=== PATIENT | female | born 1985 | race Two or more races ===

== ENCOUNTER 2022-12-09 07:07 | Inpatient (IN) | payer MEDICAID ==
[~2022-12-09] VITALS: Ht 152.4 cm; Wt 51.5 kg
[~2022-12-09 07:07] MED LIST: INSLANTI SC; INSREG3 IV
[2022-12-09 07:45] VITALS: PULSE 115; RESP 22; O2SAT 100
[2022-12-09] MEDS ORDERED: ONDANSETRON HCL 4 MG/2 ML VIAL IV ONE (09:15)
[2022-12-09] MEDS ORDERED: SODIUM CHLORIDE 0.9% 1,000 ML IV ONE ×2 (09:15)
[2022-12-09] MEDS ORDERED: MORPHINE SULFATE 4 MG/ML SYR/VIAL IV ONE (09:15)
[2022-12-09 09:29] LABS: Basophils # (auto) 0 10 ^3/uL (0-0.2); Eosinophils # (auto) 0 10 ^3/uL (0-0.8); Eosinophils % (auto) 0.1 % (0.0-7.0); Monocytes # (auto) 0.2 10 ^3/uL (0-1.3); Neutrophils # (auto) 7.5 10 ^3/uL (1.6-8.6)
[2022-12-09 09:31] LABS: Basophils % (auto) 0.6 % (0.0-2.0); Hemoglobin 14.6 g/dL (12.2-16.2); Lymphocytes # (auto) 0.9 10 ^3/uL (0.4-5.4); Lymphocytes % (auto) 10.1 % (10.0-50.0); Mean Corpuscular Hemoglobin 28.6 pg (28.0-32.0); Mean Corpuscular Hgb Conc. 32.3 g/dL (32.0-36.0); Mean Corpuscular Volume 88.3 fL (80.0-100.0); Monocytes % (auto) 2.7 % (0.0-12.0); Neutrophils % (auto) 86.5 % (37.0-80.0); Red Cell Distribution Width 14.6 % (11.8-14.3); White Blood Cell 8.7 10^3/uL (4.4-10.8)
[2022-12-09 09:39] LABS: Base Excess -12.5 mmol/L (-2.0-2.0)
[2022-12-09 10:07] LABS: Alanine Aminotransferase 39 U/L (7-40); Albumin 4.9 g/dL (3.2-4.8); Alkaline Phosphatase 178 U/L (46-116); Anion Gap 21.00001 (5-15); Aspartate Aminotransferase 11 U/L (13-40); BUN/Creatinine Ratio 13.9 (10.0-20.0); Bilirubin, Total 0.3 mg/dL (0.2-1.0); Blood Urea Nitrogen 23 mg/dL (9-23); Chloride 97 mmol/L (98-107); Potassium 5.1 mmol/L (3.5-5.1); Sodium 128 mmol/L (136-145); Total Protein 8.2 g/dL (5.7-8.2)
[2022-12-09 11:10] LABS: Glucose 542 mg/dL (74-106)
[2022-12-09 11:11] LABS: Carbon Dioxide < 10.0 mmol/L (20-30)
[2022-12-09] MEDS ORDERED: InsuLIN REG 1unit/0.01ml Soln (100units/ml) IV ONE (11:30)
[2022-12-09] MEDS ORDERED: INSULIN LANTUS (GLARGINE) 1 /0.01ml (100units/ml) SC ONE (11:45)
[2022-12-09] MEDS ORDERED: DEXTROSE (50%) 50ML SYRG IV PRN ×2 (11:45→18:45)
[2022-12-09 11:56] LABS: Urine Bacteria MOD /hpf (None Seen); Urine Blood TRACE /uL (Negative); Urine Budding Yeast OCCASIONAL /hpf (None Seen); Urine Clarity HAZY (Clear); Urine Hyaline Cast FEW /lpf (0 - 2); Urine Protein, UAD 2+ (Negative); Urine Specific Gravity 1.019 (1.001-1.035); Urine Urobilinogen Normal (Negative); Urine WBC 33 /hpf (0 - 5); Urine pH 5.5 (5.0-8.0)
[2022-12-09 12:18] LABS: Urine Color Straw (Yellow)
[2022-12-09] MEDS: ACCU-CHEK COMFORT CURVE STRIP VI SCH ×6 (12:24→20:09)
[2022-12-09] MEDS: InsuLIN R (HUMAN) 100 UNITS in SODIUM CHL 0.9% 99 ML IV SCH ×2 (13:09→13:47)
[2022-12-09 13:11] LABS: Magnesium 2.3 mg/dL (1.6-2.6)
[2022-12-09 13:12] LABS: Phosphorus 2.8 mg/dL (2.4-5.1)
[2022-12-09] MEDS: SODIUM CHLORIDE 0.9% 1,000 ML IV SCH ×3 (13:13→23:02)
[2022-12-09] MEDS ORDERED: cefTRIAXone 1GM/50ML D5W 50 ML IV ONE (14:00)
[2022-12-09] MEDS ORDERED: ONDANSETRON HCL 4 MG/2 ML VIAL IV PRN (14:00)
[2022-12-09] MEDS ORDERED: MORPHINE SULFATE INJ 2 MG/ml SYRG IV PRN (14:00)
[2022-12-09] MEDS ORDERED: NITROGLYCERIN 0.4 MG SL TAB SL PRN (14:00)
[2022-12-09] MEDS ORDERED: PANTOPRAZOLE 40 MG/10 ML VIAL INJ IV ONE (14:15)
[2022-12-09 14:40] LABS: Base Excess -8.8 mmol/L (-2.0-2.0)
[2022-12-09] MEDS ORDERED: D5W/SOD CHL 0.45% 1,000 ML IV SCH (15:30)
[2022-12-09] MEDS ORDERED: SODIUM CHLORIDE 0.9% 1,000 ML IV SCH ×2 (15:45→17:45)
[2022-12-09 16:13] LABS: Potassium 3.7 mmol/L (3.5-5.1); Sodium 136 mmol/L (136-145)
[2022-12-09 16:14] LABS: Anion Gap 9.1 (5-15); Carbon Dioxide 15.9 mmol/L (20-30)
[2022-12-09 16:15] LABS: Calcium 8.1 mg/dL (8.5-10.1)
[2022-12-09 16:19] LABS: Glucose 98 mg/dL (74-106)
[2022-12-09 16:20] LABS: BUN/Creatinine Ratio 10.7 (10.0-20.0); Blood Urea Nitrogen 13 mg/dL (9-23)
[2022-12-09 16:22] LABS: Chloride 111 mmol/L (98-107)
[2022-12-09 19:26] LABS: Chloride 110 mmol/L (98-107); Potassium 4.1 mmol/L (3.5-5.1); Sodium 135 mmol/L (136-145)
[2022-12-09 19:27] LABS: Anion Gap 2.1 (5-15); Calcium 8.4 mg/dL (8.5-10.1); Carbon Dioxide 22.9 mmol/L (20-30)
[2022-12-09 19:32] LABS: BUN/Creatinine Ratio 11.8 (10.0-20.0); Blood Urea Nitrogen 14 mg/dL (9-23); Glucose 91 mg/dL (74-106)
[2022-12-09 19:55] VITALS: PULSE 108; RESP 20; O2SAT 100
[2022-12-09] MEDS ORDERED: HYDROcodone-ACET 5/325MG TAB PO ONE (21:00)
[2022-12-09] MEDS: InsuLIN REG 1unit/0.01ml Soln (100units/ml) SC SCH (21:01)
[2022-12-09] MEDS ORDERED: INSULIN LANTUS (GLARGINE) 1 /0.01ml (100units/ml) SC SCH (22:00)
[2022-12-10] MEDS: ACCU-CHEK COMFORT CURVE STRIP VI SCH ×6 (01:05→21:06)
[2022-12-10 01:07] LABS: Anion Gap 7.8 (5-15); Carbon Dioxide 16.2 mmol/L (20-30); Chloride 109 mmol/L (98-107); Potassium 3.9 mmol/L (3.5-5.1); Sodium 133 mmol/L (136-145)
[2022-12-10 01:08] LABS: Calcium 8.3 mg/dL (8.7-10.4)
[2022-12-10] MEDS: InsuLIN REG 1unit/0.01ml Soln (100units/ml) SC SCH ×6 (01:10→20:00)
[2022-12-10 01:13] LABS: BUN/Creatinine Ratio 7.8 (10.0-20.0); Blood Urea Nitrogen 10 mg/dL (9-23); Glucose 160 mg/dL (74-106)
[2022-12-10] MEDS: SODIUM CHLORIDE 0.9% 1,000 ML IV SCH ×3 (05:38→22:47)
[2022-12-10 07:01] LABS: Alanine Aminotransferase 28 U/L (7-40); Alkaline Phosphatase 117 U/L (46-116); Anion Gap 8.4 (5-15); BUN/Creatinine Ratio 10.2 (10.0-20.0); Blood Urea Nitrogen 12 mg/dL (9-23); Calcium 8.6 mg/dL (8.7-10.4); Carbon Dioxide 17.6 mmol/L (20-30); Chloride 110 mmol/L (98-107); Glucose 106 mg/dL (74-106); Potassium 3.7 mmol/L (3.5-5.1); Sodium 136 mmol/L (136-145)
[2022-12-10 07:03] LABS: Albumin 3.7 g/dL (3.2-4.8); Aspartate Aminotransferase 14 U/L (13-40); Bilirubin, Total 0.3 mg/dL (0.2-1.0); Total Protein 6.4 g/dL (5.7-8.2)
[2022-12-10 07:25] LABS: Basophils # (auto) 0.1 10 ^3/uL (0-0.2); Basophils % (auto) 0.8 % (0.0-2.0); Eosinophils # (auto) 0.1 10 ^3/uL (0-0.8); Eosinophils % (auto) 1.1 % (0.0-7.0); Hematocrit 37.6 % (36.0-46.0); Hemoglobin 12.3 g/dL (12.2-16.2); Lymphocytes # (auto) 1.7 10 ^3/uL (0.4-5.4); Lymphocytes % (auto) 22.5 % (10.0-50.0); Mean Corpuscular Hemoglobin 28.5 pg (28.0-32.0); Mean Corpuscular Hgb Conc. 32.7 g/dL (32.0-36.0); Mean Corpuscular Volume 87.4 fL (80.0-100.0); Monocytes # (auto) 0.4 10 ^3/uL (0-1.3); Neutrophils # (auto) 5.4 10 ^3/uL (1.6-8.6); Neutrophils % (auto) 70.6 % (37.0-80.0); Nucleated Red Blood Cells % 0.1 %; Red Cell Distribution Width 14.4 % (11.8-14.3); White Blood Cell 7.6 10^3/uL (4.4-10.8)
[2022-12-10 08:00] VITALS: PULSE 96; RESP 14; O2SAT 98
[2022-12-10] MEDS: cefTRIAXone 1GM/50ML D5W 50 ML IV SCH (09:34)
[2022-12-10] MEDS ORDERED: INSULIN LANTUS (GLARGINE) 1 /0.01ml (100units/ml) SC SCH ×2 (10:00→22:00)
[2022-12-10] MEDS: PANTOPRAZOLE 40 MG/10 ML VIAL INJ IV SCH (10:40)
[2022-12-10 12:53] LABS: Chloride 112 mmol/L (98-107); Potassium 4.2 mmol/L (3.5-5.1); Sodium 137 mmol/L (136-145)
[2022-12-10 12:54] LABS: Calcium 8.4 mg/dL (8.5-10.1)
[2022-12-10 12:59] LABS: BUN/Creatinine Ratio 11.3 (10.0-20.0); Blood Urea Nitrogen 12 mg/dL (9-23); Glucose 151 mg/dL (74-106)
[2022-12-10 13:24] LABS: Anion Gap 9.6 (5-15); Carbon Dioxide 15.4 mmol/L (20-30)
[2022-12-10] MEDS: ACETAMINOPHEN 325 MG TAB PO PRN ×2 (13:26→23:59)
[2022-12-10 19:16] LABS: Anion Gap 9.4 (5-15); Carbon Dioxide 15.6 mmol/L (20-30); Chloride 111 mmol/L (98-107); Potassium 4.6 mmol/L (3.5-5.1); Sodium 136 mmol/L (136-145)
[2022-12-10 19:17] LABS: Calcium 8.1 mg/dL (8.5-10.1)
[2022-12-10 19:22] LABS: BUN/Creatinine Ratio 14.3 (10.0-20.0); Blood Urea Nitrogen 15 mg/dL (9-23); Glucose 340 mg/dL (74-106)
[2022-12-10 21:10] VITALS: BP 104/69; PULSE 94; PULSE 95; RESP 14; TEMP 98.3; O2SAT 98
[2022-12-11] MEDS: ACCU-CHEK COMFORT CURVE STRIP VI SCH ×5 (00:03→16:00)
[2022-12-11] MEDS: InsuLIN REG 1unit/0.01ml Soln (100units/ml) SC SCH ×5 (00:11→16:00)
[2022-12-11 01:06] LABS: Chloride 114 mmol/L (98-107); Potassium 3.9 mmol/L (3.5-5.1); Sodium 138 mmol/L (136-145)
[2022-12-11 01:07] LABS: Calcium 7.6 mg/dL (8.5-10.1)
[2022-12-11 01:12] LABS: BUN/Creatinine Ratio 11.2 (10.0-20.0); Blood Urea Nitrogen 11 mg/dL (9-23); Glucose 149 mg/dL (74-106)
[2022-12-11 01:50] LABS: Anion Gap 6.9 (5-15); Carbon Dioxide 17.1 mmol/L (20-30)
[2022-12-11] MEDS: SODIUM CHLORIDE 0.9% 1,000 ML IV SCH ×4 (04:40→16:00)
[2022-12-11 05:00] VITALS: BP 104/65; PULSE 86; RESP 14; TEMP 98; O2SAT 100
[2022-12-11 08:00] VITALS: BP 130/89; PULSE 91; PULSE 94; RESP 20; TEMP 98.5; O2SAT 97
[2022-12-11] MEDS: cefTRIAXone 1GM/50ML D5W 50 ML IV SCH (09:11)
[2022-12-11] MEDS: ACETAMINOPHEN 325 MG TAB PO PRN (09:11)
[2022-12-11] MEDS: PANTOPRAZOLE 40 MG/10 ML VIAL INJ IV SCH (09:11)
[2022-12-11 09:29] LABS: Basophils # (auto) 0 10 ^3/uL (0-0.2); Basophils % (auto) 0.8 % (0.0-2.0); Eosinophils # (auto) 0.1 10 ^3/uL (0-0.8); Eosinophils % (auto) 2.1 % (0.0-7.0); Hematocrit 31.7 % (36.0-46.0); Hemoglobin 10.3 g/dL (12.2-16.2); Lymphocytes # (auto) 1.4 10 ^3/uL (0.4-5.4); Lymphocytes % (auto) 25.3 % (10.0-50.0); Mean Corpuscular Hemoglobin 28.6 pg (28.0-32.0); Mean Corpuscular Hgb Conc. 32.4 g/dL (32.0-36.0); Mean Corpuscular Volume 88.3 fL (80.0-100.0); Monocytes # (auto) 0.3 10 ^3/uL (0-1.3); Monocytes % (auto) 5.9 % (0.0-12.0); Neutrophils # (auto) 3.8 10 ^3/uL (1.6-8.6); Neutrophils % (auto) 65.9 % (37.0-80.0); Red Blood Cells 3.59 10^6/uL (4.0-5.20); Red Cell Distribution Width 14.7 % (11.8-14.3); White Blood Cell 5.7 10^3/uL (4.4-10.8)
[2022-12-11 10:00] LABS: Alanine Aminotransferase 36 U/L (7-40); Albumin 3.1 g/dL (3.2-4.8); Alkaline Phosphatase 95 U/L (46-116); Anion Gap 7.9 (5-15); Aspartate Aminotransferase 59 U/L (13-40); BUN/Creatinine Ratio 12.1 (10.0-20.0); Blood Urea Nitrogen 11 mg/dL (9-23); Calcium 7.9 mg/dL (8.5-10.1); Carbon Dioxide 17.1 mmol/L (20-30); Chloride 111 mmol/L (98-107); Glucose 240 mg/dL (74-106); Potassium 4.4 mmol/L (3.5-5.1); Sodium 136 mmol/L (136-145)
[2022-12-11 10:01] LABS: Bilirubin, Total 0.2 mg/dL (0.2-1.0); Total Protein 5.4 g/dL (5.7-8.2)
[2022-12-11] MEDS ORDERED: NITR-52 PO (10:52)
[2022-12-11 12:00] VITALS: BP 145/93; PULSE 93; RESP 20; TEMP 97.4; O2SAT 100
[2022-12-11 13:50] VITALS: TEMP 36.9
[2022-12-11] MEDS ORDERED: INS7030I SC (14:52)
[2022-12-11] MEDS ORDERED: INSLANTI SC (14:52)
== END 2022-12-11 16:45 | disposition home or self-care (01) | DRG 420 ==
LOC: EDBD 07:07 → ER 07:07 → TELE 14:03 → TELE-WESTW 12-10 19:42
PROVIDERS: ADMIT Internal Medicine Pulmonary Disease; ATTEND Internal Medicine Pulmonary Disease
DX: E10.10 Type 1 diabetes mellitus with ketoacidosis without coma (principal); N17.0 Acute kidney failure with tubular necrosis; E83.51 Hypocalcemia; E87.1 Hypo-osmolality and hyponatremia; N30.00 Acute cystitis without hematuria; I10 Essential (primary) hypertension; F12.10 Cannabis abuse, uncomplicated; Z83.3 Family history of diabetes mellitus; Z91.148 Patient's other noncompliance with medication regimen for other reason
CPT/HCPCS: 36415; 36600; 71045; 74176; 80048; 80053; 81001; 82010; 82306; 82607; 82805; 82962; 83036; 83735; 83930; 84100; 84443; 84484; 84702; 85025; 87086; 99291; C9113; G0378; J0696; J1815; J2405

== ENCOUNTER 2023-02-11 16:40 | Emergency (ER) | payer SELFPAY ==
[~2023-02-11] VITALS: Ht 152.4 cm; Wt 57.2 kg
[~2023-02-11 16:40] MED LIST changes: +INS7030I SC; +NITR-52 PO
[2023-02-11 18:14] LABS: Basophils # (auto) 0.1 10 ^3/uL (0-0.2); Basophils % (auto) 0.9 % (0.0-2.0); Eosinophils # (auto) 0.1 10 ^3/uL (0-0.8); Eosinophils % (auto) 1.8 % (0.0-7.0); Hematocrit 34.4 % (36.0-46.0); Hemoglobin 11.2 g/dL (12.2-16.2); Lymphocytes # (auto) 1.6 10 ^3/uL (0.4-5.4); Lymphocytes % (auto) 19.8 % (10.0-50.0); Mean Corpuscular Hemoglobin 27.5 pg (28.0-32.0); Mean Corpuscular Hgb Conc. 32.7 g/dL (32.0-36.0); Mean Corpuscular Volume 84.3 fL (80.0-100.0); Monocytes # (auto) 0.3 10 ^3/uL (0-1.3); Monocytes % (auto) 4.4 % (0.0-12.0); Neutrophils # (auto) 5.7 10 ^3/uL (1.6-8.6); Neutrophils % (auto) 73.1 % (37.0-80.0); Red Blood Cells 4.08 10^6/uL (4.0-5.20); Red Cell Distribution Width 15.5 % (11.8-14.3); White Blood Cell 7.9 10^3/uL (4.4-10.8)
[2023-02-11 18:33] LABS: Alanine Aminotransferase 33 U/L (7-40); Alkaline Phosphatase 151 U/L (46-116); Anion Gap 14 (5-15); Aspartate Aminotransferase 24 U/L (13-40); BUN/Creatinine Ratio 23.6 (10.0-20.0); Bilirubin, Total 0.3 mg/dL (0.2-1.0); Blood Urea Nitrogen 34 mg/dL (9-23); Calcium 9.3 mg/dL (8.5-10.1); Carbon Dioxide 18 mmol/L (20-30); Chloride 98 mmol/L (98-107); Glucose 325 mg/dL (74-106); Potassium 4.6 mmol/L (3.5-5.1); Sodium 130 mmol/L (136-145); Total Protein 6.5 g/dL (5.7-8.2)
[2023-02-11 20:42] VITALS: BP 117/77; PULSE 93; RESP 16; O2SAT 99
== END 2023-02-12 01:02 | disposition left against medical advice (07) ==
LOC: EDBD 16:40 → ER 16:40 → EDUNIT# 16:40 → ER 02-12 01:02
DX: E87.1 Hypo-osmolality and hyponatremia (principal); N17.9 Acute kidney failure, unspecified; E11.9 Type 2 diabetes mellitus without complications; I10 Essential (primary) hypertension; Z53.29 Procedure and treatment not carried out because of patient's decision for other reasons
CPT/HCPCS: 36415; 71045; 80053; 80320; 83605; 83880; 84484; 85025; 87040; 93005